=== PATIENT | female | born 2000 | race Hispanic/Latino ===

== ENCOUNTER 2024-11-21 22:22 | Emergency (ER) | payer OTHER ==
[~2024-11-21] VITALS: Ht 167.6 cm; Wt 75.0 kg
[2024-11-22] MEDS ORDERED: TAM75CAP PO (01:32)
[2024-11-22] MEDS ORDERED: BENZONATATE200 MG PO (01:32)
[2024-11-22] MEDS ORDERED: MEDDOSEPAK PO (01:32)
[2024-11-22] MEDS ORDERED: OSELTAMIVIR PHOSPHATE 75 MG/TAB CAP PO ONE (01:35)
[2024-11-22 01:59] VITALS: BP 123/86
== END 2024-11-22 02:00 | disposition home or self-care (01) ==
LOC: ED 22:22 → EDBD 22:22 → ED 11-22 01:59
DX: J10.1 Influenza due to other identified influenza virus with other respiratory manifestations (principal); Z20.822 Contact with and (suspected) exposure to COVID-19
CPT/HCPCS: J1100